=== PATIENT | female | born 1985 | race Caucasian/White ===

== ENCOUNTER 2023-06-28 13:25 | Emergency (ER) | payer BC ==
[~2023-06-28] VITALS: Ht 172.7 cm; Wt 75.0 kg
[2023-06-28 13:28] VITALS: BP 144/84; PULSE 93; RESP 18; TEMP 99.3; O2SAT 97
[2023-06-28] MEDS ORDERED: NAPR-56 PO (14:16)
== END 2023-06-28 14:25 | disposition home or self-care (01) ==
LOC: ER 13:26
DX: S63.502A Unspecified sprain of left wrist, initial encounter (principal); W01.0XXA Fall on same level from slipping, tripping and stumbling without subsequent striking against object, initial encounter; Y93.89 Activity, other specified; Y92.89 Other specified places as the place of occurrence of the external cause; Y99.8 Other external cause status
CPT/HCPCS: 73110; 99283